=== PATIENT | male | born 1975 | race Caucasian/White ===

== ENCOUNTER 2024-04-22 11:25 | Observation (INO) | payer OTHER, SELFPAY ==
[2024-04-22] VITALS (10 sets, daily range): BP systolic 118–145; BP diastolic 70–90; PULSE 59–78; RESP 12–22; TEMP 36.9–37.4; O2SAT 95–97; BMI 22.8
--- NOTE | 2024-04-22 11:34 | DI.RAD.S_ITS ---
PROCEDURE: XR CHEST 1V INDICATIONS: Shortness of breath TECHNIQUE: One view of the chest was acquired. COMPARISON: None. FINDINGS: Surgical changes and devices: None. Lungs and pleura: Mild linear atelectasis versus scarring at the left lung base. Lungs are otherwise clear. No pleural effusions or pneumothorax. Mediastinum: Mediastinal contours appear normal. Heart size is normal. Bones and chest wall: No suspicious bony lesions. Overlying soft tissues appear unremarkable. IMPRESSION: No acute cardiopulmonary abnormality is seen. Dictated by: Dylon Lopes M.D. on 04/22/2024 at 12:17 Approved by: Dylon Lopes M.D. on 04/22/2024 at 12:18
--- NOTE | 2024-04-22 11:36 | EKG_ITS ---
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
[2024-04-22 11:53] LABS: Add Manual Diff / Slide Review NO; Basophils Absolute Auto 0 /uL (0-100); Basophils Percent Auto 0.3 % (0-2); Eosinophils Absolute Auto 300 /uL (0-450); Eosinophils Percent Auto 2.7 % (2-4); Hematocrit 42.9 % (41-53); Hemoglobin 14.7 g/dL (13.5-17.5); Lymphocytes Absolute Auto 1700 /uL (1100-4500); Lymphocytes Percent Auto 15.2 % (25-40); Mean Corpuscular HGB Conc 34.1 % (30-36); Mean Corpuscular Hemoglobin 31.1 PG (26-34); Monocytes Absolute Auto 800 /uL (0-900); Monocytes Percent Auto 6.8 % (3-14); Neutrophils Absolute Auto 8500 /uL (1500-7000); Platelet Count 260 X10^3/uL (150-400); Red Blood Cell Count 4.72 X10^6/uL (4.5-5.9); Red Cell Distribution Width 13.6 % (11.6-14.8); White Blood Cell Count 11.3 X10^3/uL (4.5-11.0)
[2024-04-22 12:09] LABS: Prothrombin Time 11.2 SECONDS (9.4-12.5)
[2024-04-22 12:10] LABS: Alanine Aminotransferase 54 IU/L (<50); Albumin 4.5 g/dL (3.5-5.0); Albumin Globulin Ratio 1.4 (1.0-2.8); Alkaline Phosphatase 62 U/L (38-126); Aspartate Aminotransferase 38 IU/L (17-59); BUN Creatinine Ratio 13.7 (6-22); Bilirubin Total 1.5 mg/dL (0.2-1.3); Blood Urea Nitrogen 13 mg/dL (9-20); Calcium 9.5 mg/dL (8.4-10.2); Carbon Dioxide 23 mmol/L (22-32); Chloride 105 mmol/L (98-107); Estimated Glomerular Filt Rate > 60 mL/min (>60); Globulin 3.3 g/dL (1.7-4.1); Glucose 100 mg/dL (70-100); HEMOLYSIS < 15 (0-50); Lactate (Lactic Acid) 1.9 mmol/L (0.7-2.1); Potassium 4.2 mmol/L (3.4-5.1); Sodium 137 mmol/L (137-145); Total Protein 7.8 g/dL (6.3-8.2)
[2024-04-22 12:22] LABS: NT-proBNP (BNP-Adult 18+) < 20 pg/mL (<125); Troponin I < 0.012 ng/mL (0.01-0.034)
--- NOTE | 2024-04-22 13:01 | ED_ITS ---
HPI - Chest Pain General Chief Complaint: Shortness of Breath/Dyspnea Stated Complaint: Concerning EKG, walk-in directed to ER Time Seen by Provider: 04/22/24 11:46 History of Present Illness HPI narrative: Patient here with a friend. Complains of exertional chest pain shortness of breath over the past 1 week. Was seen at the walk-in clinic for multiple complaints including rashes and skin nodules on the back of his neck and right eyebrow area. However he states he has been very short of breath when walking with off and on chest pain radiating to left arm. Strong family history of coronary disease on the mother's side. Never had stress test in the past. Related Data Home Medications Medication Instructions Recorded Confirmed albuterol sulfate 90 mcg/actuation 2 puff inhalation Q4-6H PRN 04/22/24 04/22/24 aerosol inhaler wheezing fluticasone 100 mcg-salmeterol 50 1 inh inhalation BID 04/22/24 04/22/24 mcg/dose blistr powdr for inhalation varenicline tartrate 1 mg tablet 1 mg PO BID 04/22/24 04/22/24 Allergies Allergy/AdvReac Type Severity Reaction Status Date / Time iodine Allergy Verified 04/22/24 14:40 Review of Systems Review of Systems Narrative: GENERAL: Negative chills, fatigue, malaise, fever, sweats. HEENT: Negative sinus pain, ear pain, sore throat RESPIRATORY: Positive dyspnea, negative cough CARDIOVASCULAR: Positive chest pain, negative palpitations GASTROINTESTINAL: Negative nausea, vomiting, abdominal pain : Negative dysuria, frequency, hematuria MUSCULOSKELETAL: Negative muscle or bony pain SKIN: Negative rash, skin lesions NEUROLOGIC: Negative weakness, numbness ROS Unobtainable: All systems reviewed & are unremarkable except as noted in HPI and below Patient History Medical History (Updated 04/22/24 @ 16:47 by Gordon Calvo MD) Nicotine addiction Asthma COPD (chronic obstructive pulmonary disease) Surgical History (Updated 04/22/24 @ 16:47 by Gordon Calvo MD) No significant past surgical history Family History (Updated 04/22/24 @ 16:49 by Gordon Calvo MD) Mother Myocardial infarct Diabetes mellitus Presence of biventricular AICD Father Myocardial infarct Grandfather Myocardial infarct Social History household members: friend(s) Smoking Status: Former smoker alcohol intake: never Smoking Status: Former smoker Exam Narrative Exam Narrative: GENERAL: in no distress, not toxic not dyspneic HEAD: Normocephalic. EYES: Pupils equal round ENT: Mucous membranes moist. NECK: Trachea midline. 2 cm indurated area mid line on hairline/scalp upper posterior neck. CARDIOVASCULAR: Regular rate and rhythm RESPIRATORY: Clear to auscultation. Breath sounds equal bilaterally. No wheezes, rales, or rhonchi. GASTROINTESTINAL: Abdomen soft, non-tender EXTREMITIES: No gross deformities. BACK: No flank tenderness. NEURO: AOx4. SKIN: Warm and dry, small skin nodule right lateral eyebrow PSYCH: Not anxious, is cooperative Initial Vital Signs Initial Vital Signs: Vital Signs Temperature 98.5 F 04/22/24 11:31 Pulse Rate 74 04/22/24 11:31 Respiratory Rate 14 04/22/24 11:31 Blood Pressure 145/82 H 04/22/24 11:31 Pulse Oximetry 97 04/22/24 11:31 Oxygen Delivery Method Room Air 04/22/24 11:31 Scores HEART Score Heart Score history: Slightly Suspicious Heart Score EKG: Non-Specific repolarization disturbance Heart Score Age: 45-64 years old Heart Score risk factors: 1-2 risk factors Heart Score troponin: < or = to normal limit Heart Score Total: 3 Course Orders Ordered: Albuterol (Albuterol 2.5 Mg/3 Ml Neb (Adult)) 2.5 mg INH Q4H PRN PRN Reason: wheezing Albuterol (Albuterol 2.5 Mg/3 Ml Neb (Adult)) 2.5 mg INH [id number] [facility] Last Admin: 04/23/24 07:40 Dose: Not Given Documented By: Admin: 04/23/24 05:46 Dose: Not Given Documented By: Admin: 04/22/24 18:15 Dose: Not Given Documented By: ODESSA Budesonide (Budesonide 0.5 Mg/2 Ml Neb) 0.5 mg INH RTBID [facility] Last Admin: 04/23/24 07:40 Dose: Not Given Documented By: Admin: 04/22/24 18:15 Dose: Not Given Documented By: ODESSA Naloxone HCl (Naloxone 0.4 Mg/Ml Vial) 0.2 mg IV Q2MIN PRN PRN Reason: Opiate Reversal Non-Formulary Medication (Varenicline Tartrate) 1 mg PO BID [facility] Last Admin: 04/22/24 20:41 Dose: Not Given Documented By: NAVJOT Sodium Chloride (Sodium Chloride 0.9% Flush) 10 ml IV PRN PRN PRN Reason: Flush Sodium Chloride (Sodium Chloride 0.9% Flush) 10 ml IV BID [facility] Last Admin: 04/22/24 20:48 Dose: 10 ml Documented By: NAVJOT Discontinued Medications Aspirin (Aspirin 81 Mg Chew Tab) 324 mg PO NOW ONE Stop: 04/22/24 13:09 Last Admin: 04/22/24 13:19 Dose: 324 mg Documented By: SHARMIN Vital Signs Vital signs: Vital Signs - 8 hr 04/22/24 11:31 04/22/24 11:40 04/22/24 11:40 Temperature 98.5 F Pulse Rate 74 76 Respiratory Rate 14 Blood Pressure 145/82 H 135/70 Pulse Oximetry 97 97 Oxygen Delivery Method Room Air 04/22/24 12:00 04/22/24 12:00 04/22/24 12:30 Temperature Pulse Rate 78 70 Respiratory Rate 22 19 Blood Pressure 120/81 Pulse Oximetry 97 97 Oxygen Delivery Method 04/22/24 12:34 04/22/24 12:34 Temperature Pulse Rate 66 Respiratory Rate 19 Blood Pressure 118/72 Pulse Oximetry 97 Oxygen Delivery Method MDM - Chest Pain Lab Data 04/22/24 11:48 04/22/24 11:48 Labs: Lab Results 04/22/24 04/22/24 Range/Units 11:48 11:49 WBC 11.3 H (4.5-11.0) X10^3/uL RBC 4.72 (4.5-5.9) X10^6/uL Hgb 14.7 (13.5-17.5) g/dL Hct 42.9 (41-53) % MCV 91.0 (80-100) fL MCH 31.1 (26-34) PG MCHC 34.1 (30-36) % RDW 13.6 (11.6-14.8) % Plt Count 260 (150-400) X10^3/uL Neut % (Auto) 75.0 (50-75) % Lymph % (Auto) 15.2 L (25-40) % [place] % (Auto) 6.8 (3-14) % Eos % (Auto) 2.7 (2-4) % Baso % (Auto) 0.3 (0-2) % Neut # (Auto) 8500 H (1415-8630) /uL Lymph # (Auto) 1700 (2479-8141) /uL [place] # (Auto) 800 (0-900) /uL Eos # (Auto) 300 (0-450) /uL Baso # (Auto) 0 (0-100) /uL PT 11.2 (9.4-12.5) SECONDS INR 1.0 (0.9-1.3) D-Dimer 556 H (<500) ng/ml Sodium 137 (137-145) mmol/L Potassium 4.2 (3.4-5.1) mmol/L Chloride 105 (98-107) mmol/L Carbon Dioxide 23 (22-32) mmol/L BUN 13 (9-20) mg/dL Creatinine 0.95 (0.66-1.25) mg/dL Estimated GFR > 60 (>60) mL/min BUN/Creatinine Ratio 13.7 (6-22) Glucose 100 (70-100) mg/dL Lactate 1.9 (0.7-2.1) mmol/L Calcium 9.5 (8.4-10.2) mg/dL Total Bilirubin 1.5 H (0.2-1.3) mg/dL AST 38 (17-59) IU/L ALT 54 H (<50) IU/L Alkaline Phosphatase 62 (38-126) U/L Troponin I < 0.012 (0.01-0.034) ng/mL NT-Pro-B Natriuret Pep < 20 (<125) pg/mL Total Protein 7.8 (6.3-8.2) g/dL Albumin 4.5 (3.5-5.0) g/dL Globulin 3.3 (1.7-4.1) g/dL Albumin/Globulin Ratio 1.4 (1.0-2.8) Imaging Data Chest x-ray: Radiologist's Impression: [address] [address] XRay Report Signed Patient: Dylon James MR#: [id number] : 1975 Acct:[id number] Age/Sex: 48 / M Date of Service: 04/22/24 Loc: ED Accession Number: [id number] Procedure: XR chest 1V Ordering Provider: Dayron Dumont MD PROCEDURE: XR CHEST 1V INDICATIONS: Shortness of breath TECHNIQUE: One view of the chest was acquired. COMPARISON: None. FINDINGS: Surgical changes and devices: None. Lungs and pleura: Mild linear atelectasis versus scarring at the left lung base. Lungs are otherwise clear. No pleural effusions or pneumothorax. Mediastinum: Mediastinal contours appear normal. Heart size is normal. Bones and chest wall: No suspicious bony lesions. Overlying soft tissues appear unremarkable. IMPRESSION: No acute cardiopulmonary abnormality is seen. Dictated by: Dylon Lopes M.D. on 04/22/2024 at 12:17 Approved by: Dylon Lopes M.D. on 04/22/2024 at 12:18 [facility] Narrative Medical decision making narrative: Patient here with a friend. Complains of exertional chest pain shortness of breath over the past 1 week. Was seen at the walk-in clinic for multiple complaints including rashes and skin nodules on the back of his neck and right eyebrow area. However he states he has been very short of breath when walking with off and on chest pain radiating to left arm. Strong family history of coronary disease on the mother's side. Never had stress test in the past. After history and exam CBC CMP troponin EKG chest x-ray aspirin, patient denies any current chest pain now. [facility] Medical records reviewed: No recent visit for this complaint Differential considered: Includes but not limited to STEMI non-STEMI angina pleurisy costochondritis Lab Test results independently reviewed as above. Pertinent findings: WBC 11.3 hemoglobin 14.7 INR 1.0 sodium 137 potassium 4.2 troponin less than 0.012 BNP less than 20 Independently reviewed EKG normal sinus rhythm rate [address] elevation or depression Imaging studies independently reviewed: Chest x-ray no acute finding Consultations: 1:00 p.m.. Spoke with Cardiology, Dr. Barillas, does recommend non nuclear treadmill stress test with echocardiogram would be sufficient for patient. 1:30 p.m.. Spoke with hospitalist, Dr. Calvo, will see patient for admission. Treatments: Aspirin Re-evaluations: 1:10 p.m. Updated patient results and he agrees for admission for stress test. Currently chest pain-free. Discussion: Appropriate for admission for stress test echocardiogram, patient has strong family history of coronary disease early ages. Diagnosis: Chest pain Discharge Plan Departure Patient Disposition: Admitted as Observation Clinical Impression: Chest pain Qualifiers: Chest pain type: unspecified Qualified Code(s): R07.9 - Chest pain, unspecified Admit Date/Time: 04/22/24 13:26 Admit Provider: Gordon Calvo
[2024-04-22] MEDS: ASPIRIN 81 MG CHEW TAB 324 MG PO (13:19)
--- NOTE | 2024-04-22 14:31 | P.HP_ITS ---
History of Present Illness History of Present Illness Date Patient Seen: 04/22/24 Time Patient Seen: 14:31 Chief complaint: Concerning EKG, walk-in directed to ER Narrative: This is a 48-year-old male with a history of COPD, asthma, nicotine addiction and skin ulcers/cysts who presents with 1-1/2 weeks of shortness of breath and left-sided chest pain which is only noticeable after strenuous activity. He does not notice it during activity. He has a very strong family history of coronary disease in his mother, his father and his grandfather. 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 The chest x-ray, EKG and troponin are all normal today. He does not have nausea, vomiting or abdominal pain. [facility] Medical History (Updated 04/22/24 @ 16:47 by Gordon Calvo MD) Nicotine addiction Asthma COPD (chronic obstructive pulmonary disease) Surgical History (Updated 04/22/24 @ 16:47 by Gordon Calvo MD) No significant past surgical history Family History (Updated 04/22/24 @ 16:49 by Gordon Calvo MD) Mother Myocardial infarct Diabetes mellitus Presence of biventricular AICD Father Myocardial infarct Grandfather Myocardial infarct Social History household members: friend(s) Smoking Status: Former smoker alcohol intake: never Meds Home Medications and Allergies Home Medications Medication Instructions Recorded Confirmed Type albuterol sulfate 90 mcg/actuation 2 puff inhalation Q4-6H PRN 04/22/24 04/22/24 History aerosol inhaler wheezing fluticasone 100 mcg-salmeterol 50 1 inh inhalation BID 04/22/24 04/22/24 History mcg/dose blistr powdr for inhalation varenicline tartrate 1 mg tablet 1 mg PO BID 04/22/24 04/22/24 History Allergies Allergy/AdvReac Type Severity Reaction Status Date / Time iodine Allergy Verified 04/22/24 14:40 Review of Systems Review of Systems Narrative: Positive for bilateral foot cramps, left-sided chest pain and shortness of breath. Negative for fevers, chills, sweats, nausea, vomiting, abdominal pain, coughing, dysuria, joint pain, rashes, sore throat, new allergies. Exam Vital Signs (past 8 hours): - 04/22/24 11:31 04/22/24 11:40 04/22/24 11:40 Temperature 98.5 F Pulse Rate 74 76 Respiratory Rate 14 Blood Pressure 145/82 H 135/70 Pulse Oximetry 97 97 Oxygen Delivery Method Room Air 04/22/24 12:00 04/22/24 12:00 04/22/24 12:30 Temperature Pulse Rate 78 70 Respiratory Rate 22 19 Blood Pressure 120/81 Pulse Oximetry 97 97 Oxygen Delivery Method 04/22/24 12:34 04/22/24 12:34 04/22/24 13:00 Temperature Pulse Rate 66 Respiratory Rate 19 Blood Pressure 118/72 126/73 Pulse Oximetry 97 Oxygen Delivery Method 04/22/24 13:00 04/22/24 13:30 04/22/24 13:30 Temperature Pulse Rate 65 59 L Respiratory Rate 16 19 Blood Pressure 123/77 Pulse Oximetry 95 96 Oxygen Delivery Method 04/22/24 14:00 04/22/24 14:00 Temperature Pulse Rate 60 Respiratory Rate 19 Blood Pressure 120/84 Pulse Oximetry 97 Oxygen Delivery Method Oxygen Delivery Method Room Air Narrative Exam Narrative: Alert and oriented x3. No apparent distress. His friend is at bedside. Heart is regular rate and rhythm without murmur Lungs are clear to auscultation bilaterally Abdomen is soft, bowel sounds positive, nontender, no organomegaly. There is no chest wall tenderness Pupils are equally round and reactive to light and accommodation. Extraocular muscles are intact. The left upper eyelid is sagging/droopy. Sclerae are pink and nonicteric There is no thyromegaly No carotid bruits are heard No lymph nodes are felt head, neck, supraclavicular area Extremities have no ankle edema Skin has no rash or jaundice. There is a small skin ulcer on the right occiput scalp. Neurological exam: Cranial nerves 2-12 test intact. Motor function is 5/5 throughout There is no increased tendon reflexes There is no dysmetria Objective Labs 04/22/24 11:48 04/22/24 11:48 Labs: Laboratory Results - last 24 hr 04/22/24 11:48 WBC 11.3 H RBC 4.72 Hgb 14.7 Hct 42.9 MCV 91.0 MCH 31.1 MCHC 34.1 RDW 13.6 Plt Count 260 Neut % (Auto) 75.0 Lymph % (Auto) 15.2 L [place] % (Auto) 6.8 Eos % (Auto) 2.7 Baso % (Auto) 0.3 Neut # (Auto) 8500 H Lymph # (Auto) 1700 [place] # (Auto) 800 Eos # (Auto) 300 Baso # (Auto) 0 PT 11.2 INR 1.0 Sodium 137 Potassium 4.2 Chloride 105 Carbon Dioxide 23 BUN 13 Creatinine 0.95 Estimated GFR > 60 BUN/Creatinine Ratio 13.7 Glucose 100 Lactate 1.9 Calcium 9.5 Total Bilirubin 1.5 H AST 38 ALT 54 H Alkaline Phosphatase 62 Troponin I < 0.012 NT-Pro-B Natriuret Pep < 20 Total Protein 7.8 Albumin 4.5 Globulin 3.3 Albumin/Globulin Ratio 1.4 Assessment & Plan Assessment & Plan narrative: This is a 48-year-old male with a history of COPD, asthma, nicotine addiction and skin ulcers/cysts who presents with 1-1/2 weeks of shortness of breath and left-sided chest pain which is only noticeable after strenuous activity. He does not notice it during activity. Left-sided chest pain, present on admission -strong family history of coronary artery disease and recently stopped smoking. -chest x-ray normal, film reviewed -EKG normal-tracing reviewed -troponin is normal -check lipids in the morning -chest pain is atypical, occurring after exertion. -follow troponin and order echocardiogram along with treadmill nuclear medicine scan tomorrow. -troponin is minimally elevated at 556 (normal range of up to 500), repeat in 6 hours and consider CTA chest if it trends upward. Nicotine addiction -continue Chantix, he stopped smoking 4 months ago COPD/asthma -continue albuterol and fluticasone Bilateral foot cramps -follow-up with PCP Skin cyst/ulceration problem -follow-up with PCP DVT prevention: SCD and continue mobilizing normally Time-Based Coding :: [TOTAL MINUTES] spent with patient and on the chart (including review of chart, obtaining history, exam, reviewing outside data, placing orders, documenting exam and treatment plan, and counseling patient) on [DATE].
--- NOTE | 2024-04-22 15:04 | DI.NM.S_ITS ---
PROCEDURE: NM NIXON PERF SPECT REST & STR Rest and exercise myocardial perfusion SPECT with gated imaging and ejection fraction RADIOPHARMACEUTICAL: 12.5 mCi Tc-99m sestamibi IV at rest and 27.1 mCi Tc-99m sestamibi IV at peak exercise. A one day-protocol was performed. INDICATIONS: Chest Pain TECHNIQUE: Radiopharmaceutical was injected at peak stress test, and also at rest. SPECT images were obtained. SPECT myocardial perfusion images were displayed in short axis, horizontal long axis, and vertical long axis views. Gated images were reviewed using LineaQuattro software. COMPARISON: None. CARDIAC STRESS: A standard Han treadmill exercise tolerance test was performed by the patient under the supervision of an attending staff. The patient exercised for 8 minutes and 0 seconds; functional aerobic impairment (STEFFEN) is +25%. Hemodynamic data: There is normal blood pressure and heart rate response to exercise stress. Patient achieved 92% of maximum predicted heart rate at peak exercise. Symptoms: Patient denied chest pain during exercise. EKG: No diagnostic EKG changes of ischemia; no ectopy. FINDINGS: Raw data: There is good myocardial labeling by radiotracer. No significant motion artifacts. Vyvm-ba-wlwgk ratio is 0.34 (normal is less than 0.38 for sestamibi tracer, and less than 0.50 for thallium tracer). Left ventricle function: Gated images demonstrate normal left ventricle wall thickening. No segmental wall motion abnormality. No transient ischemic dilation; TID is 0.78 (normal less than 1.3). The left ventricle resting end-diastolic volume is 96 mL. Left ventricle stress ejection fraction is 65$; normal values are above 45%. Myocardial perfusion: There is a mildly intense inferior wall defect at rest that improves with stress and resolves with prone imaging, suggesting diaphragmatic attenuation artifact. No ischemia or infarction present. IMPRESSION: Low risk, normal treadmill nuclear stress test from inducible ischemia standpoint. 1) There is a mildly intense inferior wall defect at rest that improves with stress and resolves with prone imaging, suggesting diaphragmatic attenuation artifact. No ischemia or infarction present. 2) Normal left ventricular size, wall motion, and systolic function (EF post stress 65%). 3) No diagnostic ST changes during exercise or recovery. 4) No angina during the study. 5) Reduced exercise tolerance (10.1METs, STEFFEN +25%). Target heart rate reached. Appropriate BP response to exercise. 6) No prior nuclear stress test available for comparison. Dictated by: Kristina Barillas MD on 04/23/2024 at 13:07 Approved by: Kristina Barillas MD on 04/23/2024 at 13:11
--- NOTE | 2024-04-22 15:19 | DI.ECHO.S_ITS ---
[place] [facility]---------+ [facility] : : [address] : : [place] : : [id number] : : Phone: [phone] Echocardiogram Report + + :Name: URSULA LAND Study Date: 04/22/2024 Height: 68 in : :[facility] ReadingLocation: Weight: 150 lb : : Gender: Male BSA: 1.8 m2 : :: 1975 Age: 48 yrs BP: 129/90 mmHg: :Reason For Study: CHEST PAIN : :Ordering Physician: LISA, : :AFSHAN Castillo Performed By: Swathi Mcdaniels : :Referring: AFSHAN GONZALEZ : + + Interpretation Summary Mild-moderate mitral regurgitation is present. Otherwise: Normal LV size and systolic function. LVEF is 60-65% Normal RV size and function. Normal atrial sizes. Other findings as below. No previous echo images are available for comparison. Procedure: A two-dimensional transthoracic echocardiogram with color flow and Doppler was performed. The study quality was technically adequate. There is no prior echocardiogram noted for this patient. The patient was in sinus bradycardia with heart rates between 52-66 bpm during the exam. Left Ventricle: The left ventricle is normal in size and wall thickness. The ejection fraction is estimated to be 60-65%. Right Ventricle: The right ventricle is normal in size and function. Atria: The left atrial size is normal. Right atrial size is normal. There is no Doppler evidence for an interatrial shunt. Mitral Valve: The mitral valve leaflets appear to open well. There is mild to moderate mitral regurgitation. Aortic Valve: The aortic valve is trileaflet. The aortic valve opens well. There is no aortic valve stenosis. No aortic regurgitation is present. Tricuspid Valve: The tricuspid valve leaflets are thin and pliable. There is trace tricuspid regurgitation. Pulmonary artery pressures cannot be estimated because of the lack of a measurable TR jet velocity. Pulmonic Valve: The pulmonic valve leaflets are thin and pliable; valve motion is normal. There is mild pulmonic regurgitation. Great Vessels: The aortic root is normal size. The dimensions of the ascending aorta are normal. The IVC is of normal diameter and collapses greater than 50% with a sniff. This suggests a low right atrial pressure of 3 mm Hg. Pericardium/ Pleura There is no pericardial effusion. There is no pleural effusion. MMode/2D Measurements & Calculations LVIDd: 4.8 cm LVOT diam: 2.1 cm LVIDs: 3.5 cm Ao root diam: 2.9 cm FS: 27.9 % asc Aorta Diam: 2.9 cm EPSS: 0.35 cm Ao Arch Diam (Prox Trans): 3.0 cm IVSd: 0.81 cm LVPWd: 0.76 cm LV celis. diameter/BSA (cm/m^2): 2.7 LV sys. diameter/BSA (cm/m^2): 1.9 LA A2 area: 15.4 cm2 RA long axis: 4.4 cm LA A4 area: 15.6 cm2 RA area: 14.5 cm2 LA length (vol): 5.1 cm RA vol: 40.7 ml LA vol: 40.0 ml RA : 22.5 ml/m2 LA vol index: 22.1 ml/m2 IVC diam: 1.0 cm RVD1 (basal): 3.6 cm TAPSE: 2.0 cm Doppler Measurements & Calculations Ao V2 max: 113.1 cm/sec LVOT Max Mario Alberto: 92.9 cm/sec Ao V2 mean: 77.4 cm/sec LV V1 max P.5 mmHg Ao max P.1 mmHg LV V1 VTI: 20.3 cm Ao mean P.6 mmHg CHER(I,D): 3.0 cm2 Ao V2 VTI: 22.7 cm CHER(V,D): 2.7 cm2 sev ratio: 0.89 CHER indexed to BSA (cm^2/m^2): 1.7 MV E max mario alberto: 58.4 cm/sec PA V2 max: 75.3 cm/sec MV A max mario alberto: 34.2 cm/sec PA V2 mean: 56.0 cm/sec MV E/A: 1.7 PA mean P.4 mmHg Med Peak E' Mario Alberto: 13.3 cm/sec PA pr(Accel): 22.5 mmHg E/E' med: 4.4 Lat Peak E' Mario Alberto: 13.5 cm/sec E/E' lat: 4.3 E/e' average: 4.4 MV dec time: 0.32 sec SV(LVOT): 67.9 ml Reading Physician:04:32 PM
--- NOTE | 2024-04-22 15:31 | PC.NURSE ---
patient A&O x4, Echo in room now. VSS. Pt indept. in room but knows to call w/ any needs. Discussion of plan for stress test in AM. Patient understands no Caffein, chocolate, and NPO at midnight. Per DI, test is sched. for 1115 tomorrow 04/23.
[2024-04-22 15:34] LABS: D Dimer 556 ng/ml (<500)
[2024-04-22 15:44] LABS: Troponin I < 0.012 ng/mL (0.01-0.034)
[2024-04-22] MEDS: SODIUM CHLORIDE 0.9% FLUSH 10 ML IV (20:48)
[2024-04-22 21:40] LABS: D Dimer 607 ng/ml (<500)
[2024-04-22 21:55] LABS: Troponin I < 0.012 ng/mL (0.01-0.034)
[2024-04-23] VITALS: BP 98/61; PULSE 67; RESP 18; TEMP 37.1; O2SAT 97
[2024-04-23 04:00] VITALS: BP 115/72; PULSE 60; RESP 18; TEMP 37.1; O2SAT 96
--- NOTE | 2024-04-23 07:31 | PM.PN.1 ---
Subjective Subjective Date Patient Seen: 04/23/24 Interval history: He is seen today to follow-up the chest pain with strong family history of coronary disease. His nuclear medicine cardiac stress test was read as low risk/normal. His D-dimer was mildly elevated on admission and feliciano slightly on follow-up to 607. The troponin was normal at less than 0.012. There is no echocardiogram before yet. He will undergo prednisone pretreatment for CTA chest due to iodine allergy so will need to stay until tomorrow. He has had no recurrence of chest pain. Exam Vital Signs (past 8 hours): - 04/23/24 00:00 04/23/24 04:00 Temperature 98.8 F 98.8 F Pulse Rate 67 60 Respiratory Rate 18 18 Blood Pressure 98/61 115/72 Pulse Oximetry 97 96 Oxygen Flow Rate 0 0 Fraction of Inspired Oxygen 21 Oxygen Delivery Method Room Air Oxygen Flow Rate 0 Narrative Exam Narrative: Alert and oriented x3. No apparent distress. Heart is regular rate and rhythm without murmur Lungs are clear to auscultation bilaterally Extremities have no ankle edema Objective Labs 04/22/24 11:48 04/22/24 11:48 Labs: Laboratory Results - last 24 hr 04/22/24 04/22/24 04/22/24 11:48 11:49 15:08 WBC 11.3 H RBC 4.72 Hgb 14.7 Hct 42.9 MCV 91.0 MCH 31.1 MCHC 34.1 RDW 13.6 Plt Count 260 Neut % (Auto) 75.0 Lymph % (Auto) 15.2 L Humphreys % (Auto) 6.8 Eos % (Auto) 2.7 Baso % (Auto) 0.3 Neut # (Auto) 8500 H Lymph # (Auto) 1700 Humphreys # (Auto) 800 Eos # (Auto) 300 Baso # (Auto) 0 PT 11.2 INR 1.0 D-Dimer 556 H Sodium 137 Potassium 4.2 Chloride 105 Carbon Dioxide 23 BUN 13 Creatinine 0.95 Estimated GFR > 60 BUN/Creatinine Ratio 13.7 Glucose 100 Lactate 1.9 Calcium 9.5 Total Bilirubin 1.5 H AST 38 ALT 54 H Alkaline Phosphatase 62 Troponin I < 0.012 < 0.012 NT-Pro-B Natriuret Pep < 20 Total Protein 7.8 Albumin 4.5 Globulin 3.3 Albumin/Globulin Ratio 1.4 04/22/24 21:23 WBC RBC Hgb Hct MCV MCH MCHC RDW Plt Count Neut % (Auto) Lymph % (Auto) Humphreys % (Auto) Eos % (Auto) Baso % (Auto) Neut # (Auto) Lymph # (Auto) Humphreys # (Auto) Eos # (Auto) Baso # (Auto) PT INR D-Dimer 607 H Sodium Potassium Chloride Carbon Dioxide BUN Creatinine Estimated GFR BUN/Creatinine Ratio Glucose Lactate Calcium Total Bilirubin AST ALT Alkaline Phosphatase Troponin I < 0.012 NT-Pro-B Natriuret Pep Total Protein Albumin Globulin Albumin/Globulin Ratio [facility] Medical History (Updated 04/22/24 @ 16:47 by Gordon Calvo MD) Nicotine addiction Asthma COPD (chronic obstructive pulmonary disease) Surgical History (Updated 04/22/24 @ 16:47 by Gordon Calvo MD) No significant past surgical history Family History (Updated 04/22/24 @ 16:49 by Gordon Calvo MD) Mother Myocardial infarct Diabetes mellitus Presence of biventricular AICD Father Myocardial infarct Grandfather Myocardial infarct Social History household members: friend(s) Smoking Status: Former smoker alcohol intake: never Assessment & Plan Assessment & Plan narrative: This is a 48-year-old male with a history of COPD, asthma, nicotine addiction and skin ulcers/cysts who presents with 1-1/2 weeks of shortness of breath and left-sided chest pain which is only noticeable after strenuous activity. He does not notice it during activity. Left-sided chest pain, present on admission -strong family history of coronary artery disease and recently stopped smoking. -chest x-ray normal, film reviewed -EKG normal-tracing reviewed -troponin is normal -check lipids in the morning -chest pain is atypical, occurring after exertion. -Echo report pending -treadmill nuclear medicine scan low risk -Ddimeris minimally elevated at 556 (normal range of up to 500), repeat is 607 so will do a CTA chest but will need a 13 hour Prednisone pretreatment protocol due to Iodine allergy. Nicotine addiction -continue Chantix, he stopped smoking 4 months ago COPD/asthma -continue albuterol and fluticasone Bilateral foot cramps -follow-up with PCP Skin cyst/ulceration problem -follow-up with PCP DVT prevention: SCD and continue mobilizing normally Time-Based Coding :: [TOTAL MINUTES] spent with patient and on the chart (including review of chart, obtaining history, exam, reviewing outside data, placing orders, documenting exam and treatment plan, and counseling patient) on [DATE].
[2024-04-23 08:00] VITALS: BP 128/85; PULSE 64; RESP 16; TEMP 36.7; O2SAT 96
--- NOTE | 2024-04-23 08:19 | PC.NURSE ---
Day shift: Pt off unit for stress test at approx 0800.
[2024-04-23] MEDS: SODIUM CHLORIDE 0.9% FLUSH 10 ML IV ×2 (09:28→20:59)
[2024-04-23] MEDS: ACETAMINOPHEN 325 MG TABLET 650 MG PO (11:12)
--- NOTE | 2024-04-23 14:12 | CM.DANOTE ---
Initial DCP Assessment Visit Note Reviewed EMR and team rounds for status updates. Met with pt and his friend at bedside to introduce self and role, pt was found to be alert/oriented, able to share his living situation and supports available. He lives independently in his own trailer with a friend. His friend will transport him home tomorrow, once he's had the stress test. He declines any CM assistance needs for d/c at this time. Payor: Self Pay No PCP Pt is a 48 year-old M who presented to the ED yesterday afternoon with c/o 1 1/2 weeks of chest pain. He shared that he's had a strong family hx of cardiac deaths, his mother was the last one 2-years ago. ECHO was negative for abnormalities, and he hasn't had any further pain since he was admitted. Plan is for a cardiac stress test tomorrow, and if normal, he will d/c home. Monitoring for any further evolving needs prior to his departure, although none are anticipated at this time. Discharge Planning/Care Management CM Discharge Assessment Start: 04/23/24 14:08 Freq: Status: Active Protocol: Document 04/23/24 14:08 DPL (Rec: 04/23/24 14:11 DPL [id number]) Discharge Planning Assessment Assigned Supervisor [facility] [employer] CORAL Castro Advance Directives? No History Provided By Patient,Medical Record Has Patient been admitted in last 30 No days? Prior Living Arrangements Mobile home Household Members friend(s) Type of transporation used prior to Drives own vehicle admit Independent with ADL's Yes Is patient alert and oriented? Yes Comment N/A Caregiver for Another No Comment N/A Discharge Plan Home Transportation Arrangement Friend Referrals Initiated None needed Whiteboard Updated in Patient Room with Yes name and ext. # of Supervisor [facility] [employer] Review Status In Process Please Provide Date Initial DC 04/23/24 Assessment Was Performed
[2024-04-23] MEDS: predniSONE 20 MG TABLET 50 MG PO ×2 (14:27→18:49)
[2024-04-23 16:00] VITALS: BP 118/84; PULSE 68; RESP 16; TEMP 37; O2SAT 97
[2024-04-23] MEDS: FLUTICASONE INH (16:25)
[2024-04-23] MEDS: SALMETEROL INH (16:25)
[2024-04-23 20:00] VITALS: BP 143/81; PULSE 72; RESP 18; TEMP 37.2; O2SAT 97
--- NOTE | 2024-04-23 23:33 | PC.NURSE ---
Patient is alert and oriented. Breath sounds CTA with RA sat of 97%. HRR w/telemetry reading of SR. BP slightly high at 143/81. Denied nausea. BT present and reports having had BM earlier today. Denies any urinary problems. Is independent with mobility. Refusing SCD's so reminded to ankle wave and encouraged activity. Denied pain. Plan is for CTA at 0300 after receiving preventive meds due to Iodine allergy. Fall risk score is low.
[2024-04-24] VITALS: BP 117/81; PULSE 82; RESP 18; TEMP 36.6; O2SAT 96
[2024-04-24] MEDS: diphenhydrAMINE 50 MG/ML VIAL IV (02:10)
[2024-04-24] MEDS: predniSONE 20 MG TABLET 50 MG PO (02:11)
[2024-04-24] MEDS: SODIUM CHLORIDE 0.9% FLUSH 10 ML IV ×2 (02:11→09:28)
--- NOTE | 2024-04-24 03:00 | DI.CT.S_ITS ---
PROCEDURE: CT ANGIO CHEST PE PROTOCOL INDICATIONS: Chest Pain TECHNIQUE: After the administration of intravenous contrast, 2 mm thick sections acquired from the pulmonary apices to the posterior costophrenic angles. 3-dimensional maximum intensity projection (MIP) coronal and sagittal reformats were then acquired through the thorax. For radiation dose reduction, the following was used: automated exposure control, adjustment of mA and/or kV according to patient size. COMPARISON: None. FINDINGS: Image quality: Diagnostic. Pulmonary arteries: Pulmonary arteries are normal in size, and demonstrate no intraluminal filling defects to suggest central pulmonary embolism. Lower Neck: No enlarged lymph nodes. Thyroid: No thyroid nodules which require sonographic follow up, per consensus guidelines. Axillae: No enlarged lymph nodes. Chest Wall: Unremarkable. Bones: Unremarkable. Lungs and Pleura: No pneumothorax or pleural effusions. No consolidation or suspicious nodules. There is moderate to severe upper lobe predominant centrilobular and paraseptal emphysema. A few scattered pulmonary micro nodules, for example in the right middle lobe (6/195, MIP image 100). Heart: Heart size is normal. No pericardial effusion. Thoracic Vessels: No aortic aneurysm. Mediastinum and Katja: No enlarged lymph nodes. Esophagus: No wall thickening. No hiatal hernia. Upper Abdomen: Visualized upper abdomen solid organs and bowel loops appear normal. IMPRESSION: No pulmonary embolus. No acute cardiopulmonary process. Scattered pulmonary micro nodules. If patient is high risk for lung malignancy recommend follow-up CT chest in 12 months to demonstrate stability per Fleischner society guidelines. Findings are concordant with preliminary interpretation provided by [facility]. Approved by: Jami Parr M.D.,Ph.D. on 04/24/2024 at 9:28
[2024-04-24 04:00] VITALS: BP 111/74; PULSE 72; RESP 18; TEMP 36.7; O2SAT 95
[2024-04-24 07:05] LABS: Cholesterol 203 mg/dL (140-199); HDL Cholesterol 58 mg/dL (40-60); LDL Cholesterol Calculated 138 mg/dL (<100); Triglycerides 37 mg/dL (35-150)
[2024-04-24 08:00] VITALS: BP 113/77; PULSE 97; RESP 19; O2SAT 100
[2024-04-24] MEDS: SALMETEROL INH (09:28)
[2024-04-24] MEDS: FLUTICASONE INH (09:28)
--- NOTE | 2024-04-24 10:26 | CM.DPC ---
DCP Cont. Reviewed EMR and team rounds for status updates. Pt has been medically cleared for home d/c, his friend will be transporting him home later this morning. No further d/c needs indicated at this time.
--- NOTE | 2024-04-24 10:38 | PM.DS.1 ---
History of Present Illness History of Present Illness Chief complaint: Concerning EKG, walk-in directed to ER Narrative: From H&P: This is a 48-year-old male with a history of COPD, asthma, nicotine addiction and skin ulcers/cysts who presents with 1-1/2 weeks of shortness of breath and left-sided chest pain which is only noticeable after strenuous activity. He does not notice it during activity. He has a very strong family history of coronary disease in his mother, his father and his grandfather. 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 The chest x-ray, EKG and troponin are all normal today. He does not have nausea, vomiting or abdominal pain. Discharge Providers Provider Date of admission: 04/22/24 13:26 Discharge Date: 04/24/24 Consults: 04/22/24 14:57 Consult to BUTTON CUTTING MACHINE OPERATOR - Customer Sales Distributor Routine Comment: Customer Sales Distributor Consult needed for:: Has no money Comment: pt states he often worries about finacial well being, and being able to get food before he is paid again. Discharge provider: Inder Grubbs MD Summary Hospital Course Discharge Diagnosis: 1. Left-sided chest pain, present on admission and resolved. -strong family history of coronary artery disease and recently stopped smoking. -chest x-ray normal, film reviewed -EKG normal-tracing reviewed -troponin is normal -check lipids in the morning -chest pain is atypical, occurring after exertion. -treadmill nuclear medicine scan low risk -Ddimeris minimally elevated at 556 (normal range of up to 500), repeat is 607 so will do a CTA chest but will need a 13 hour Prednisone pretreatment protocol due to Iodine allergy. -CTA and echo normal. 2. COPD/asthma, present on admission and stable. -continue albuterol and fluticasone Hospital Course: He was admitted with atypical chest pain and underwent extensive testing including negative chest x-ray, negative CTA, normal echo and a low risk stress test. In the day of discharge he was comfortable with his evaluation and had no further symptoms. He will follow up with his primary care within the next week. He has remained off from cigarettes for the past 4 months and we will continue to do so. Status at Discharge Cognitive/behavioral status at discharge: oriented Functional status at discharge: independent ambulation Overall status at discharge: patient is back to baseline Time Spent with Patient Time spent: Greater than 30 minutes Exam Vital Signs (past 8 hours): - 04/24/24 04:00 04/24/24 08:00 Temperature 98.1 F Pulse Rate 72 97 H Respiratory Rate 18 19 Blood Pressure 111/74 113/77 Pulse Oximetry 95 100 Oxygen Flow Rate 0 0 Fraction of Inspired Oxygen 21 Oxygen Delivery Method Room Air Oxygen Flow Rate 0 Narrative Exam Narrative: NAD, alert and oriented. Fluent speech. Lungs are notable for some expiratory wheezing on both sides, normal rate and effort. Heart is regular, no murmur gallop or rub. Abdomen is soft, non distended. Extremities are free of edema. Objective ECG Impression: Normal sinus rhythm Minimal voltage criteria for LVH, may be normal variant ( Sokolow-Delgado ) Imaging Multiple studies:: Radiologist's impression: Chest CTA: No pulmonary embolus. No acute cardiopulmonary process. Scattered pulmonary micro nodules. If patient is high risk for lung malignancy recommend follow-up CT chest in 12 months to demonstrate stability per Fleischner society guidelines. Stress test: IMPRESSION: Low risk, normal treadmill nuclear stress test from inducible ischemia standpoint. 1) There is a mildly intense inferior wall defect at rest that improves with stress and resolves with prone imaging, suggesting diaphragmatic attenuation artifact. No ischemia or infarction present. 2) Normal left ventricular size, wall motion, and systolic function (EF post stress 65%). 3) No diagnostic ST changes during exercise or recovery. 4) No angina during the study. 5) Reduced exercise tolerance (10.1METs, STEFFEN +25%). Target heart rate reached. Appropriate BP response to exercise. 6) No prior nuclear stress test available for comparison. Echo: Normal Chest x-ray: No acute cardiopulmonary abnormality is seen. Labs 04/22/24 11:48 04/22/24 11:48 Labs: Laboratory Results - last 24 hr 04/24/24 06:30 Triglycerides 37 Cholesterol 203 H LDL Cholesterol, Calc 138 H HDL Cholesterol 58 PFSH Medical History Nicotine addiction Asthma COPD (chronic obstructive pulmonary disease) Surgical History No significant past surgical history Family History Mother Myocardial infarct Diabetes mellitus Presence of biventricular AICD Father Myocardial infarct Grandfather Myocardial infarct Social History household members: friend(s) Smoking Status: Former smoker alcohol intake: never Discharge Assessment & Plan Assessment and Plan Assessment: 1. Left-sided chest pain, present on admission and resolved. -strong family history of coronary artery disease and recently stopped smoking. -chest x-ray normal, film reviewed -EKG normal-tracing reviewed -troponin is normal -check lipids in the morning -chest pain is atypical, occurring after exertion. -Echo report normal -treadmill nuclear medicine scan low risk -Ddimeris minimally elevated at 556 (normal range of up to 500), repeat is 607 so will do a CTA chest but will need a 13 hour Prednisone pretreatment protocol due to Iodine allergy. -CTA and echo normal. 2. COPD/asthma, present on admission and stable. -continue albuterol and fluticasone Plan of Treatment: Discharge home with reassurance, follow up PCP within the next week. Discharge Plan Discharge Plan Patient Disposition: Home Provider Discharge Comment: All testing is negative, patient was reassured, and is stable for discharge home. Discharge orders & Medications Prescriptions: Continued fluticasone propion-salmeterol 100-50 mcg/dose blister with device 1 inh INHALATION BID albuterol sulfate 90 mcg/actuation HFA aerosol inhaler 2 puff INHALATION Q4-6H PRN (Reason: wheezing) varenicline tartrate 1 mg tablet 1 mg PO BID Discharge Health Status Multidrug resistant organism: No MDRO Diet/Activity/Treatments Diet: Regular Visit Report/Discharge Packet Instructions: DI for Atypical Chest Pain Stand Alone Forms: Patient Portal/API Discharge Data Attending Provider: Gordon Calvo Admit Date/Time: 04/22/24 13:26
--- NOTE | 2024-04-24 11:36 | PC.NURSE ---
Day shift: Pt left unit at approx 1130. He ambulated to main entrance with this health underwriter and tolerated well. Friend is driving him home. Has all personal belongings. Discharge paperwork signed and all questions answered.
== END 2024-04-24 11:25 | disposition home or self-care (01) ==
LOC: ED 13:08 → AC 13:27
PROVIDERS: Admitting Provider Family Medicine; Emergency Provider Emergency Medicine; Referring Provider Emergency Medicine; Visit Provider Family Medicine
DX: R07.89 Other chest pain (principal); Z82.49 Family history of ischemic heart disease and other diseases of the circulatory system; Z87.891 Personal history of nicotine dependence; J44.9 Chronic obstructive pulmonary disease, unspecified; L98.499 Non-pressure chronic ulcer of skin of other sites with unspecified severity; R79.89 Other specified abnormal findings of blood chemistry; R25.2 Cramp and spasm
CPT/HCPCS: 36415; 71045; 71275; 78452; 80053; 80061; 83605; 83880; 84484; 85025; 85379; 85610; 93005; 93017; 93306; 96374; 99284; G0378; A9502; J1200; Q9967